=== PATIENT | female | born 1990 | race Two or more races ===

== ENCOUNTER 2022-03-27 01:19 | Emergency (ER) | payer OTHER ==
[~2022-03-27] VITALS: Ht 167.6 cm; Wt 78.4 kg
== END 2022-03-27 02:22 | disposition home or self-care (01) ==
LOC: ED 01:19
DX: S61.210A Laceration without foreign body of right index finger without damage to nail, initial encounter (principal); S61.212A Laceration without foreign body of right middle finger without damage to nail, initial encounter; W26.8XXA Contact with other sharp object(s), not elsewhere classified, initial encounter; Z88.0 Allergy status to penicillin
CPT/HCPCS: 90471; 90714; 99282-25